=== PATIENT | female | born 1990 | race Caucasian/White ===

== ENCOUNTER → 2016-06-17 | Outpatient (CLI) | payer BC ==
[~2016-06-17] MED LIST: PRENATAL MULTI1 EAC3 PO; REGLAN10 M2 PO; ZOFRAN ODT8 M1 PO; vitamin D PO
== END ==
LOC: RAD 10:10
DX: M25.562 Pain in left knee (principal); W19.XXXA Unspecified fall, initial encounter; S83.011A Lateral subluxation of right patella, initial encounter; S83.012A Lateral subluxation of left patella, initial encounter

== ENCOUNTER 2016-06-23 07:52 | Outpatient (RCR) | payer BC | END 2016-07-24 13:08 | disposition home or self-care (01) | LOC: PT 07:52 | DX: M22.2X2 Patellofemoral disorders, left knee (principal); M62.81 Muscle weakness (generalized) ==

== ENCOUNTER → 2016-09-14 | Outpatient (CLI) | payer BC | LOC: LAB 07:54 | DX: Z32.01 Encounter for pregnancy test, result positive (principal) ==

== ENCOUNTER → 2016-09-16 | Outpatient (CLI) | payer BC | LOC: LAB 07:04 | DX: Z32.01 Encounter for pregnancy test, result positive (principal) ==

== ENCOUNTER 2016-10-15 10:06 | Emergency (ER) | payer BC ==
[~2016-10-15] VITALS: Ht 175.3 cm; Wt 127.3 kg
[2016-10-15] MEDS ORDERED: PRENATAL MULTI1 EAC3 PO (10:15)
[2016-10-15] MEDS ORDERED: vitamin D PO (10:16)
[2016-10-15] MEDS ORDERED: ZOFRAN ODT8 M1 PO (13:46)
[2016-10-15] MEDS ORDERED: REGLAN10 M2 PO (13:46)
[2016-10-15 14:15] VITALS: BP 117/60
== END 2016-10-15 14:15 | disposition home or self-care (01) ==
LOC: ED 10:06
DX: O99.89 Other specified diseases and conditions complicating pregnancy, childbirth and the puerperium (principal); H83.09 Labyrinthitis, unspecified ear; Z3A.09 9 weeks gestation of pregnancy
CPT/HCPCS: J2405; J7120

== ENCOUNTER 2017-07-14 10:37 | Observation (INO) | payer BC ==
[2017-07-14] VITALS (12 sets, daily range): BP systolic 110–140; BP diastolic 57–71
[~2017-07-14] VITALS: Ht 175.3 cm; Wt 130.7 kg
[2017-07-14 11:19] LABS: HEMATOCRIT 41.1 % (37.0-47.0); HEMOGLOBIN 12.8 g/dL (12.5-16.0); MEAN CELL VOLUME 80 fl (78-100); MEAN CORPUSCULAR HEMOGLOBIN 25 pg (27-31); MEAN CORPUSCULAR HGB CONC 31 g/dL (33-37); MEAN PLATELET VOLUME 9.5 fl (7.4-10.4); PLATELET COUNT 446 K/mm3 (130-400); RED BLOOD COUNT 5.16 M/mm3 (4.10-5.30); RED CELL DISTRIBUTION WIDTH 14.5 % (11.5-14.5); WHITE BLOOD COUNT 17.4 K/mm3 (4.8-10.8)
[2017-07-14 11:32] LABS: LYMPHOCYTE 13 % (20-51); MONOCYTE 5 % (3-10); NEUTROPHILS 82 % (42-75)
[2017-07-14 11:35] LABS: ALBUMIN 4.2 g/dL (3.5-5.0); BUN/CREATININE RATIO 21.3 (6.0-26.0); CALCIUM 9.4 mg/dL (8.4-10.2); POTASSIUM 3.9 mmol/L (3.6-5.0); TOTAL BILIRUBIN 0.3 mg/dL (0.2-1.3)
[2017-07-15 03:00] VITALS: BP 108/60
[2017-07-15 06:35] VITALS: BP 113/56
[2017-07-15 07:14] LABS: EOS # 0.1 (0.04-0.40); EOS % 1.1 % (1.0-5.0); HEMATOCRIT 39.1 % (37.0-47.0); HEMOGLOBIN 11.9 g/dL (12.5-16.0); LYMPH# 4.4 (1.50-4.00); MEAN CELL VOLUME 81 fl (78-100); MEAN CORPUSCULAR HEMOGLOBIN 25 pg (27-31); MEAN CORPUSCULAR HGB CONC 30 g/dL (33-37); MEAN PLATELET VOLUME 9.5 fl (7.4-10.4); MONO # 0.6 (0.20-0.80); NEU # 5.3 (1.40-6.50); PLATELET COUNT 352 K/mm3 (130-400); RED BLOOD COUNT 4.81 M/mm3 (4.10-5.30); RED CELL DISTRIBUTION WIDTH 14.9 % (11.5-14.5); WHITE BLOOD COUNT 10.5 K/mm3 (4.8-10.8)
[2017-07-15 07:25] LABS: ALBUMIN 3.5 g/dL (3.5-5.0); ALT/SGPT 28 U/L (9-52); AST-SGOT 14 U/L (14-36); BUN/CREATININE RATIO 19.1 (6.0-26.0); CALCIUM 8.6 mg/dL (8.4-10.2); CARBON DIOXIDE 29 mmol/L (22-30); GLUCOSE 87 mg/dL (65-105); POTASSIUM 3.8 mmol/L (3.6-5.0); SODIUM 142 mmol/L (137-145); TOTAL BILIRUBIN 0.3 mg/dL (0.2-1.3); TOTAL PROTEIN 7.4 g/dL (6.3-8.2)
== END 2017-07-15 09:00 | disposition home or self-care (01) ==
LOC: ED 10:37 → MED/SURG 13:11
PROVIDERS: ADMIT Physician Assistant
DX: T46.4X1A Poisoning by angiotensin-converting-enzyme inhibitors, accidental (unintentional), initial encounter (principal)
CPT/HCPCS: G0378; J7120

== ENCOUNTER 2017-10-15 11:30 | Outpatient (RCR) | payer BC | END 2017-10-15 12:00 | disposition home or self-care (01) | LOC: PT 11:30 | DX: M25.512 Pain in left shoulder (principal); G89.29 Other chronic pain; M89.8X1 Other specified disorders of bone, shoulder ==

== ENCOUNTER 2019-08-13 17:59 | Emergency (ER) | payer BC ==
[~2019-08-13] VITALS: Ht 172.7 cm; Wt 127.3 kg
[~2019-08-13 17:59] MED LIST changes: +MECLIZINE PO; +TYLENOL EXTRA500 M2 PO
[2019-08-13 19:39] LABS: EOS # 0.3 (0.04-0.40); EOS % 2.3 % (1.0-5.0); HEMOGLOBIN 11.7 g/dL (12.5-16.0); LYMPH# 2.5 (1.50-4.00); MEAN CELL VOLUME 75 fl (78-100); MEAN CORPUSCULAR HGB CONC 30 g/dL (33-37); MONO # 0.7 (0.20-0.80); NEU # 7.3 (1.40-6.50); PLATELET COUNT 364 K/mm3 (130-400); RED CELL DISTRIBUTION WIDTH 15.5 % (11.5-14.5); WHITE BLOOD COUNT 10.7 K/mm3 (4.8-10.8)
[2019-08-13 19:42] LABS: MEAN CORPUSCULAR HEMOGLOBIN 23 pg (27-31)
[2019-08-13 19:49] LABS: URINE APPEARANCE HAZY; URINE COLOR YELLOW
[2019-08-13 19:50] LABS: URINE BILIRUBIN NEGATIVE (NEGATIVE); URINE BLOOD NEGATIVE (NEGATIVE); URINE GLUCOSE NEGATIVE (NEGATIVE); URINE KETONE NEGATIVE (NEGATIVE); URINE LEUKOCYTE ESTERASE NEGATIVE (NEGATIVE); URINE NITRATE NEGATIVE (NEGATIVE); URINE PROTEIN(semi-quant) NEGATIVE (NEGATIVE); URINE UROBILINOGEN NORMAL (NORMAL); URINE WBC 0-1 /hpf (0-3)
[2019-08-13 19:52] LABS: ALBUMIN 3.8 g/dL (3.5-5.0)
[2019-08-13 19:53] LABS: POTASSIUM 4.1 mmol/L (3.5-5.1)
[2019-08-13 19:54] LABS: CALCIUM 9.3 mg/dL (8.3-10.5)
[2019-08-13 19:55] LABS: TOTAL PROTEIN 7.5 g/dL (6.4-8.3)
[2019-08-13 19:57] LABS: TOTAL BILIRUBIN 0.2 mg/dL (0.2-1.2)
[2019-08-13 22:05] VITALS: BP 140/84
== END 2019-08-13 22:10 | disposition home or self-care (01) ==
LOC: ED 17:59
PROVIDERS: Family Medicine
DX: R10.11 Right upper quadrant pain (principal)
CPT/HCPCS: Q9967

== ENCOUNTER 2020-08-06 07:14 | Emergency (ER) | payer BC ==
[2020-08-06] MEDS ORDERED: SLOW FE142 MG PO (07:29)
[2020-08-06] MEDS ORDERED: WELLBUTRIN XL300 M1 PO (07:29)
[2020-08-06] MEDS ORDERED: DOXYCYCLINE MO100 M3 PO (07:29)
[2020-08-06] MEDS ORDERED: BUSPIRONE5 MG PO (07:30)
[2020-08-06] MEDS ORDERED: CYCLOBENZAPRINE10 M1 PO (07:30)
[2020-08-06 08:25] LABS: URINE APPEARANCE CLEAR; URINE BILIRUBIN NEGATIVE (NEGATIVE); URINE BLOOD NEGATIVE (NEGATIVE); URINE COLOR YELLOW; URINE GLUCOSE NEGATIVE (NEGATIVE); URINE KETONE NEGATIVE (NEGATIVE); URINE LEUKOCYTE ESTERASE NEGATIVE (NEGATIVE); URINE NITRATE NEGATIVE (NEGATIVE); URINE PROTEIN(semi-quant) NEGATIVE (NEGATIVE); URINE UROBILINOGEN NORMAL (NORMAL)
[2020-08-06 08:26] LABS: URINE MUCUS PRESENT (NOT PRESENT)
[2020-08-06] MEDS ORDERED: NORCO 325 MG-51 TA1 PO (08:28)
[2020-08-06] MEDS ORDERED: MEDROL DOSEPAK4 MG PO (08:34)
[2020-08-06 08:39] VITALS: BP 137/79
== END 2020-08-06 08:56 | disposition home or self-care (01) ==
LOC: ED 07:14
PROVIDERS: Nurse Practitioner Family
DX: M54.16 Radiculopathy, lumbar region (principal); G89.29 Other chronic pain; F32.9 Major depressive disorder, single episode, unspecified; F17.200 Nicotine dependence, unspecified, uncomplicated; Z79.899 Other long term (current) drug therapy
CPT/HCPCS: J1100

== ENCOUNTER 2020-08-14 04:46 | Emergency (ER) | payer BC ==
[~2020-08-14 04:46] MED LIST changes: +BUSPIRONE5 MG PO; +CYCLOBENZAPRINE10 M1 PO; +DOXYCYCLINE MO100 M3 PO; +MEDROL DOSEPAK4 MG PO; +NORCO 325 MG-51 TA1 PO; +SLOW FE142 MG PO; +WELLBUTRIN XL300 M1 PO
[2020-08-14] MEDS ORDERED: ONDANSETRON ODT8 MG PO (06:50)
[2020-08-14 07:09] VITALS: BP 158/92
[2020-08-15] MEDS ORDERED: MEDROL DOSEPAK4 MG PO (13:07)
== END 2020-08-14 07:12 | disposition home or self-care (01) ==
LOC: ED 04:46
DX: G89.29 Other chronic pain (principal); M54.5 Low back pain; F32.9 Major depressive disorder, single episode, unspecified; Z79.899 Other long term (current) drug therapy
CPT/HCPCS: J1885; J2270

== ENCOUNTER 2020-08-15 11:10 | Emergency (ER) | payer BC ==
[2020-08-15] MEDS ORDERED: MEDROL DOSEPAK4 MG PO (13:07)
[2020-08-15 13:21] VITALS: BP 162/80
== END 2020-08-15 13:14 | disposition home or self-care (01) ==
LOC: ED 11:10
DX: M54.31 Sciatica, right side (principal); F32.9 Major depressive disorder, single episode, unspecified; E66.9 Obesity, unspecified; Z68.41 Body mass index [BMI] 40.0-44.9, adult; Z79.899 Other long term (current) drug therapy
CPT/HCPCS: J1170; J1885

== ENCOUNTER → 2020-08-15 | Outpatient (CLI) | payer BC ==
[~2020-08-15] MED LIST changes: +ONDANSETRON ODT8 MG PO
== END ==
LOC: RAD 18:06
DX: M51.27 Other intervertebral disc displacement, lumbosacral region (principal); M43.17 Spondylolisthesis, lumbosacral region

== ENCOUNTER → 2021-01-29 | Outpatient (CLI) | payer BC | LOC: RAD 01-15 17:26 | DX: M25.561 Pain in right knee (principal); M25.562 Pain in left knee ==

== ENCOUNTER → 2021-09-09 | Outpatient (CLI) | payer BC ==
[2021-09-09 13:34] LABS: CLUE CELLS PRESENT (Not Observd)
== END ==
LOC: LAB 13:31
PROVIDERS: Nurse Practitioner Family
DX: L29.3 Anogenital pruritus, unspecified (principal); R35.0 Frequency of micturition
CPT/HCPCS: Q0111

== ENCOUNTER → 2021-10-02 | Outpatient (CLI) | payer BC ==
[2021-10-02 12:24] LABS: BASO # 0.02 K/mm3 (0.02-0.10); EOS # 0.16 K/mm3 (0.04-0.40); EOS % 1.2 % (1.0-5.0); HEMATOCRIT 45.6 % (37.0-47.0); HEMOGLOBIN 14.4 g/dL (12.5-16.0); MEAN CELL VOLUME 86 fl (78-100); MEAN CORPUSCULAR HEMOGLOBIN 27 pg (27-31); MEAN CORPUSCULAR HGB CONC 32 g/dL (33-37); MEAN PLATELET VOLUME 9.1 fl (7.4-10.4); MONO # 0.58 K/mm3 (0.20-0.80); NEU # 10.22 K/mm3 (1.40-6.50); PLATELET COUNT 321 K/mm3 (130-400); RED BLOOD COUNT 5.32 M/mm3 (4.10-5.30); RED CELL DISTRIBUTION WIDTH 12.9 % (11.5-14.5); WHITE BLOOD COUNT 12.9 K/mm3 (4.8-10.8)
[2021-10-02 12:31] LABS: D-DIMER 0.34 mg/L FEU (0.15-0.50)
[2021-10-02 14:14] LABS: POTASSIUM 3.9 mmol/L (3.5-5.1)
[2021-10-02 14:15] LABS: CALCIUM 9.5 mg/dL (8.3-10.5)
[2021-10-02 14:16] LABS: TOTAL PROTEIN 8.3 g/dL (6.4-8.3)
[2021-10-02 14:18] LABS: TOTAL BILIRUBIN 0.4 mg/dL (0.2-1.2)
== END ==
LOC: LAB 08:04
PROVIDERS: Nurse Practitioner
DX: Z20.822 Contact with and (suspected) exposure to COVID-19 (principal)

== ENCOUNTER → 2021-11-05 | Outpatient (CLI) | payer BC | LOC: RAD 10:11 | DX: M25.862 Other specified joint disorders, left knee (principal) ==

== ENCOUNTER → 2022-04-01 | Outpatient (CLI) | payer BC ==
[2022-04-01 08:56] LABS: BASO # 0.01 K/mm3 (0.02-0.10); EOS # 0.12 K/mm3 (0.04-0.40); EOS % 1.3 % (1.0-5.0); HEMATOCRIT 44.3 % (37.0-47.0); HEMOGLOBIN 13.9 g/dL (12.5-16.0); MEAN CELL VOLUME 84 fl (78-100); MEAN CORPUSCULAR HEMOGLOBIN 26 pg (27-31); MEAN CORPUSCULAR HGB CONC 31 g/dL (33-37); MEAN PLATELET VOLUME 9.3 fl (7.4-10.4); MONO # 0.43 K/mm3 (0.20-0.80); NEU # 6.54 K/mm3 (1.40-6.50); PLATELET COUNT 325 K/mm3 (130-400); RED BLOOD COUNT 5.29 M/mm3 (4.10-5.30); RED CELL DISTRIBUTION WIDTH 13.3 % (11.5-14.5); WHITE BLOOD COUNT 9.2 K/mm3 (4.8-10.8)
[2022-04-01 09:04] LABS: POTASSIUM 4.2 mmol/L (3.5-5.1)
[2022-04-01 09:05] LABS: CALCIUM 9.7 mg/dL (8.3-10.5)
[2022-04-01 09:07] LABS: TOTAL PROTEIN 8.3 g/dL (6.4-8.3)
[2022-04-01 09:09] LABS: TOTAL BILIRUBIN 0.3 mg/dL (0.2-1.2)
== END ==
LOC: LAB 08:36
PROVIDERS: Physician Assistant
DX: Z00.00 Encounter for general adult medical examination without abnormal findings (principal); Z13.29 Encounter for screening for other suspected endocrine disorder; Z13.1 Encounter for screening for diabetes mellitus; Z13.220 Encounter for screening for lipoid disorders; D50.9 Iron deficiency anemia, unspecified; I10 Essential (primary) hypertension; R53.83 Other fatigue; K90.9 Intestinal malabsorption, unspecified; M25.562 Pain in left knee; Z83.3 Family history of diabetes mellitus

== ENCOUNTER → 2023-01-26 | Outpatient (CLI) | payer BC | LOC: RAD 08:10 → LAB 08:10 | DX: M79.671 Pain in right foot (principal) ==

== ENCOUNTER → 2023-03-25 | Outpatient (CLI) | payer BC ==
[2023-03-25 08:19] LABS: BASO # 0.02 K/mm3 (0.02-0.10); EOS # 0.14 K/mm3 (0.04-0.40); EOS % 1.8 % (1.0-5.0); HEMATOCRIT 42.8 % (37.0-47.0); HEMOGLOBIN 13.7 g/dL (12.5-16.0); LYMPH# 2.37 K/mm3 (1.50-4.00); MEAN CELL VOLUME 85 fl (78-100); MEAN CORPUSCULAR HEMOGLOBIN 27 pg (27-31); MEAN CORPUSCULAR HGB CONC 32 g/dL (33-37); MEAN PLATELET VOLUME 9.2 fl (7.4-10.4); MONO # 0.43 K/mm3 (0.20-0.80); NEU # 4.69 K/mm3 (1.40-6.50); PLATELET COUNT 307 K/mm3 (130-400); RED BLOOD COUNT 5.05 M/mm3 (4.10-5.30); RED CELL DISTRIBUTION WIDTH 12.9 % (11.5-14.5); WHITE BLOOD COUNT 7.7 K/mm3 (4.8-10.8)
[2023-03-25 08:48] LABS: CALCIUM 9.1 mg/dL (8.3-10.5)
[2023-03-25 08:49] LABS: TOTAL PROTEIN 7.8 g/dL (6.4-8.3)
[2023-03-25 08:51] LABS: TOTAL BILIRUBIN 0.4 mg/dL (0.2-1.2)
== END ==
LOC: LAB 08:05
PROVIDERS: Physician Assistant
DX: Z13.220 Encounter for screening for lipoid disorders (principal); Z13.29 Encounter for screening for other suspected endocrine disorder; K90.9 Intestinal malabsorption, unspecified; I10 Essential (primary) hypertension; D50.9 Iron deficiency anemia, unspecified; Z83.3 Family history of diabetes mellitus

== ENCOUNTER 2023-07-10 14:16 | Emergency (ER) | payer BC ==
[~2023-07-10] VITALS: Ht 172.7 cm; Wt 133.8 kg
[2023-07-10] MEDS ORDERED: PHENTERMINE15 MG PO (14:25)
[2023-07-10] MEDS ORDERED: LOSARTAN POTASS50 M1 PO (14:25)
[2023-07-10] MEDS ORDERED: NORCO 325 MG-51 TA1 PO (14:57)
[2023-07-10] MEDS ORDERED: ZOFRAN ODT4 MG PO (14:58)
[2023-07-10] MEDS ORDERED: Ketorolac 30 MG/ML VIAL IM ONE (15:15)
[2023-07-10 15:16] VITALS: BP 136/88
== END 2023-07-10 15:15 | disposition home or self-care (01) ==
LOC: ED 14:16
DX: M54.16 Radiculopathy, lumbar region (principal)
CPT/HCPCS: J1885

== ENCOUNTER → 2024-06-01 | Outpatient (CLI) | payer BC ==
[~2024-06-01] MED LIST changes: +LOSARTAN POTASS50 M1 PO; +PHENTERMINE15 MG PO; +ZOFRAN ODT4 MG PO
[2024-06-01 09:11] LABS: HEMATOCRIT 42.4 % (37.0-47.0); HEMOGLOBIN 13.4 g/dL (12.5-16.0); MEAN PLATELET VOLUME 9.2 fl (7.4-10.4); RED BLOOD COUNT 4.89 M/mm3 (4.10-5.30); WHITE BLOOD COUNT 10.5 K/mm3 (4.8-10.8)
[2024-06-01 09:13] LABS: ALBUMIN 4.1 g/dL (3.5-5.0)
[2024-06-01 09:14] LABS: CALCIUM 9.7 mg/dL (8.3-10.5)
[2024-06-01 09:17] LABS: TOTAL BILIRUBIN 0.5 mg/dL (0.2-1.2)
== END ==
LOC: LAB 08:41
PROVIDERS: Physician Assistant
DX: Z13.1 Encounter for screening for diabetes mellitus (principal); Z13.29 Encounter for screening for other suspected endocrine disorder; D50.9 Iron deficiency anemia, unspecified; E78.5 Hyperlipidemia, unspecified